=== PATIENT | female | born 1985 | race African-American/Black ===

== ENCOUNTER 2017-05-24 09:56 | Emergency (ER) | payer OTHER ==
[~2017-05-24] VITALS: Ht 170.2 cm; Wt 81.7 kg
[~2017-05-24 09:56] MED LIST: METROGEL-VAGINA70 GM VG; MOBIC15 MG PO; NAPROSYN500 MG PO; NORCO 5-325 TA1 EACH PO; NORFLEX100 MG PO; PREDNISONE 20 M20 M1 PO; PRENATAL; PROAIR HFA8.5 GM IH; ULTRAM 50MG TAB50 MG PO
[2017-05-24 10:20] LABS: URINE BILIRUBIN NEGATIVE (Negative); URINE BLOOD NEGATIVE (Negative); URINE COLOR YELLOW; URINE GLUCOSE-RANDOM* NEGATIVE (Negative); URINE KETONES TRACE (Negative); URINE NITRITE NEGATIVE (Negative); URINE PROTEIN (DIPSTICK) NEGATIVE (Negative); URINE SPECIFIC GRAVITY 1.015 (1.005-1.035); URINE UROBILINOGEN 0.2 E.U./dl (0.2-1.0)
[2017-05-24] MEDS ORDERED: [UNRECOGNIZED DRUG - OTHER] (10:21)
[2017-05-24 11:05] LABS: ABSOLUTE NEUTROPHILS 3.8 thou/uL (1.4-8.2); BASOPHILS 1.3 % (0.0-2.0); HEMATOCRIT 35.7 % (37.0-47.0); HEMOGLOBIN 12.1 gm/dL (12.0-15.0); LYMPHOCYTES 35.2 % (24.0-44.0); MCH 31.1 pg (26.0-34.0); MCHC 33.9 g/dL (28.0-37.0); MCV 91.7 fL (80.0-100.0); PLATELET COUNT 216 thou/uL (150-400); POLYS 55.5 % (36.0-66.0); RBC 3.89 mil/uL (4.20-5.00); RDW 13.8 % (10.5-14.5); WBC 6.9 thou/uL (4.0-11.0)
[2017-05-24 11:06] LABS: MANUAL DIFF NO
[2017-05-24 11:12] LABS: CALCIUM 8.9 mg/dL (8.5-10.1); CREATININE 0.9 mg/dL (0.6-1.0); POTASSIUM 3.3 mmol/L (3.5-5.1)
[2017-05-24 11:18] LABS: ALBUMIN 4.3 g/dL (3.4-5.0); TOTAL BILIRUBIN 1.1 mg/dL (<0.1-1.0); TOTAL PROTEIN 7.9 g/dL (6.4-8.2)
[2017-05-24 12:23] VITALS: BP 144/94
[2017-05-26 16:11] LABS: CHLAMYDIA TRACHOMATIS-PCR Negative (Negative); NEISSERIA GONORRHEA-PCR Negative (Negative)
== END 2017-05-24 12:24 | disposition home or self-care (01) ==
LOC: ER 09:56
PROVIDERS: Physician Assistant
DX: O20.0 Threatened abortion (principal); I10 Essential (primary) hypertension; J45.909 Unspecified asthma, uncomplicated; F17.210 Nicotine dependence, cigarettes, uncomplicated; Z88.6 Allergy status to analgesic agent; Z3A.01 Less than 8 weeks gestation of pregnancy

== ENCOUNTER 2019-03-31 16:57 | Emergency (ER) | payer OTHER ==
[~2019-03-31] VITALS: Ht 170.2 cm; Wt 86.2 kg
[~2019-03-31 16:57] MED LIST changes: +[UNRECOGNIZED DRUG - OTHER]
[2019-03-31] MEDS ORDERED: NIFEDIPINE10 MG (17:09)
[2019-03-31 17:34] LABS: URINE BILIRUBIN NEGATIVE (Negative); URINE BLOOD NEGATIVE (Negative); URINE CLARITY CLEAR; URINE COLOR YELLOW; URINE GLUCOSE-RANDOM* NEGATIVE (Negative); URINE KETONES NEGATIVE (Negative); URINE LEUKOCYTES-REFLEX 2+ (Negative); URINE NITRITE-REFLEX NEGATIVE (Negative); URINE PROTEIN (DIPSTICK) NEGATIVE (Negative); URINE UROBILINOGEN 0.2 E.U./dl (0.2-1.0)
[2019-03-31 18:11] LABS: CASTS None Seen /LPF (None Seen); CRYSTALS None Seen /LPF (None Seen); SQUAMOUS 0-3 Few /LPF (0-3); URINE WBC-REFLEX 6-15 Few /HPF (0-5)
[2019-03-31 18:12] LABS: URINE RBC None Seen /HPF (0-2)
[2019-03-31] MEDS ORDERED: PREDNISONE 20 M20 MG PO (18:40)
[2019-03-31] MEDS ORDERED: KEFLEX500 M1 PO (18:40)
[2019-03-31] MEDS ORDERED: TESSALON PERLE100 MG PO (18:42)
[2019-03-31 18:54] VITALS: BP 160/90
== END 2019-03-31 18:55 | disposition home or self-care (01) ==
LOC: ER 16:57
PROVIDERS: Nurse Practitioner
DX: J06.9 Acute upper respiratory infection, unspecified (principal); N39.0 Urinary tract infection, site not specified; I10 Essential (primary) hypertension; J45.909 Unspecified asthma, uncomplicated; F17.210 Nicotine dependence, cigarettes, uncomplicated; Z88.6 Allergy status to analgesic agent